=== PATIENT | female | born 1970 | race African-American/Black ===

== ENCOUNTER 2024-06-26 23:39 | Inpatient (IN) | payer MEDICAID ==
[~2024-06-26] VITALS: Ht 175.3 cm; Wt 98.4 kg
[2024-06-27 00:46] LABS: BASOPHILS % 0.3 % (0.0-2.0); EOSINOPHILS % 3.9 % (0.0-5.0); HEMOGLOBIN. 13.7 g/dL (12.0-16.0); LYMPHOCYTES % 31.7 % (20.0-50.0); MEAN CORPUSCULAR HEMOGLOBIN 30.2 pg (28.0-32.0); MEAN CORPUSCULAR HGB CONC 33.5 g/dL (31.0-37.0); MEAN CORPUSCULAR VOLUME 90.4 fL (81.0-99.0); MEAN PLATELET VOLUME 8.5 fl (7.4-10.4); MONOCYTES % 6.2 % (2.0-8.0); NEUTROPHILS % 57.9 % (40.0-76.0); PLATELET 240 x1000/uL (130-400); RED BLOOD CELL COUNT 4.53 mill/uL (4.2-5.4); RED CELL DISTRIBUTION WIDTH 14.1 % (11.6-14.6)
[2024-06-27 00:52] LABS: CARBON DIOXIDE 25 mEq/L (21-32); CHLORIDE 109 mEq/L (98-107); POTASSIUM 3.4 mEq/L (3.5-5.1); SODIUM 142 mEq/L (136-145)
[2024-06-27 00:53] LABS: CALCIUM 9.1 mg/dL (8.7-10.4)
[2024-06-27 00:57] LABS: CREATININE 1.1 mg/dL (0.6-1.0); GLUCOSE 140 mg/dL (70-105)
[2024-06-27 00:58] LABS: UREA NITROGEN BLOOD 23 mg/dL (9-23)
[2024-06-27 01:00] LABS: TROPONIN I HIGH SENSITIVITY 4 ng/L (3.0-34)
[2024-06-27 05:06] LABS: TROPONIN I HIGH SENSITIVITY 4 ng/L (3.0-34)
[2024-06-27] MEDS ORDERED: IPRATROPIUM/ALBUTEROL 0.5-3(2.5)MG/3ML NEB HHN PRN (05:30)
[2024-06-27] MEDS ORDERED: ACETAMINOPHEN 325MG TABLET PO PRN ×2 (05:30)
[2024-06-27] MEDS ORDERED: DOCUSATE SODIUM 100MG CAPSULE PO PRN (05:30)
[2024-06-27] MEDS ORDERED: CLONIDINE 0.1MG TABLET PO PRN (05:30)
[2024-06-27] MEDS ORDERED: MAGNESIUM/ALUMINUM HYDROXIDE/SIMETHICONE 30ML UDC PO PRN (05:30)
[2024-06-27] MEDS ORDERED: ONDANSETRON HCL 4MG/2ML INJ IV PRN (05:30)
[2024-06-27] MEDS: ASPIRIN 81MG EC TABLET PO NR (05:38)
[2024-06-27 05:40] LABS: BASOPHILS % 0.2 % (0.0-2.0); EOSINOPHILS % 3.7 % (0.0-5.0); HEMOGLOBIN. 13.3 g/dL (12.0-16.0); LYMPHOCYTES % 34.2 % (20.0-50.0); MEAN CORPUSCULAR HEMOGLOBIN 30.1 pg (28.0-32.0); MEAN CORPUSCULAR HGB CONC 33.4 g/dL (31.0-37.0); MEAN CORPUSCULAR VOLUME 90.1 fL (81.0-99.0); MEAN PLATELET VOLUME 9.2 fl (7.4-10.4); MONOCYTES % 5.9 % (2.0-8.0); PLATELET 219 x1000/uL (130-400); RED BLOOD CELL COUNT 4.44 mill/uL (4.2-5.4); RED CELL DISTRIBUTION WIDTH 13.8 % (11.6-14.6); WHITE BLOOD COUNT 9.9 x1000/uL (4.5-11.0)
[2024-06-27 05:57] LABS: CHLORIDE 109 mEq/L (98-107); POTASSIUM 3.8 mEq/L (3.5-5.1); SODIUM 142 mEq/L (136-145)
[2024-06-27 05:58] LABS: CARBON DIOXIDE 27 mEq/L (21-32)
[2024-06-27 06:03] LABS: GLUCOSE 130 mg/dL (70-105); TRIGLYCERIDE 291 mg/dL (0-150)
[2024-06-27 06:04] LABS: LDL CHOLESTEROL 112 mg/dL (5-100); TROPONIN I HIGH SENSITIVITY 4 ng/L (3.0-34); UREA NITROGEN BLOOD 21 mg/dL (9-23)
[2024-06-27 06:05] LABS: ALANINE AMINOTRANSFERASE 27 IU/L (10-49); ALBUMIN 4.5 g/dL (3.2-4.8); ASPARTATE AMINOTRANSFERASE 21 IU/L (<34); CHOLESTEROL 182 mg/dL (<200); HDL CHOLESTEROL 34 mg/dL (>65)
[2024-06-27 06:06] LABS: BILIRUBIN TOTAL 0.3 mg/dL (0.1-1.0); PROTEIN TOTAL 7.3 g/dL (6.0-8.3)
[2024-06-27 06:08] LABS: THYROID STIMULATING HORMONE 0.19 uIU/mL (0.55-4.78)
[2024-06-27 06:41] LABS: BILIRUBIN DIRECT < 0.1 mg/dL (<=3.0); ETHANOL BLOOD < 10 mg/dL (<10)
[2024-06-27] MEDS: IOHEXOL-350 100 ML BOTTLE ONE (07:02)
[2024-06-27] MEDS: LEVOTHYROXINE SODIUM 175MCG TABLET PO SCH (07:08)
[2024-06-27] MEDS: PANTOPRAZOLE SODIUM 40 MG/VIAL IV SCH (09:34)
[2024-06-27] MEDS ORDERED: LEVO175T7 PO (10:33)
[2024-06-27] MEDS ORDERED: ATOR20TA65 PO (10:33)
[2024-06-27] MEDS ORDERED: METF-907 PO (10:33)
[2024-06-27] MEDS ORDERED: BENA-8 PO (10:33)
[2024-06-27] MEDS ORDERED: HYDR25TA PO (10:33)
[2024-06-27] MEDS ORDERED: AMLO10TA80 PO (10:33)
[2024-06-27] MEDS: HYDROCHLOROTHIAZIDE 25MG TABLET PO SCH (11:02)
[2024-06-27] MEDS: AMLODIPINE 10MG TABLET PO SCH (11:02)
[2024-06-27 15:44] LABS: TROPONIN I HIGH SENSITIVITY 4 ng/L (3.0-34)
[2024-06-27 15:48] LABS: CREATINE KINASE 122 IU/L (34-145)
[2024-06-27] MEDS: ATORVASTATIN CALCIUM 20MG TABLET PO SCH (21:04)
[2024-06-27 23:30] VITALS: BP 132/84; PULSE 60; RESP 18; TEMP 37.0852
[2024-06-28 04:00] VITALS: BP 158/88; PULSE 51; RESP 19; TEMP 36.50292
[2024-06-28 08:00] VITALS: BP 159/89; PULSE 59; RESP 18; TEMP 36.61404; O2SAT 99
[2024-06-28] MEDS: NITROGLYCERIN SPRAY/4.9GM CAN TL ONE (09:55)
[2024-06-28] MEDS ORDERED: IOHEXOL-350 100 ML BOTTLE ONE (10:33)
[2024-06-28] MEDS: ASPIRIN 81MG EC TABLET PO SCH (10:48)
[2024-06-28 12:00] VITALS: BP 131/76; PULSE 60; RESP 18; TEMP 36.72516; O2SAT 97
[2024-06-28 14:24] VITALS: BP 131/76; PULSE 60; TEMP 98.1; O2SAT 97
== END 2024-06-28 15:45 | disposition home or self-care (01) | DRG 198 ==
LOC: ER 23:39 → 5WST 06-27 01:29 → 7EST 06-27 01:29 → UNDOADMIN 06-27 01:29 → EDBEDREQ 06-27 01:35 → 7EST 06-28 00:36 → 5WST 06-28 00:36
PROVIDERS: ADMIT Internal Medicine; ATTEND Internal Medicine
DX: I20.89 Other forms of angina pectoris (principal); E11.9 Type 2 diabetes mellitus without complications; E78.5 Hyperlipidemia, unspecified; E87.6 Hypokalemia; E89.0 Postprocedural hypothyroidism; F17.210 Nicotine dependence, cigarettes, uncomplicated; I10 Essential (primary) hypertension; K59.00 Constipation, unspecified; I25.2 Old myocardial infarction; Z79.899 Other long term (current) drug therapy; Z82.49 Family history of ischemic heart disease and other diseases of the circulatory system
CPT/HCPCS: 36415; 71045; 71275; 75571; 80048; 80061; 80076; 80320; 82550; 83036; 83880; 84439; 84443; 84484; 85025; 85379; 93005; 99285; J2470; Q9967; G0480

== ENCOUNTER 2024-12-09 09:29 | Emergency (ER) | payer MEDICAID ==
[~2024-12-09] VITALS: Ht 165.1 cm; Wt 76.0 kg
[~2024-12-09 09:29] MED LIST: AMLO10TA80 PO; ATOR20TA65 PO; BENA-8 PO; HYDR25TA PO; LEVO175T7 PO; METF-907 PO
[2024-12-09 09:30] VITALS: BP 148/89; PULSE 82; RESP 18; TEMP 36.9; O2SAT 98
[2024-12-09 10:04] LABS: BASOPHILS % 0.4 % (0.0-2.0); EOSINOPHILS % 3.3 % (0.0-5.0); HEMATOCRIT. 44.3 % (36.0-48.0); HEMOGLOBIN. 14.9 g/dL (12.0-16.0); LYMPHOCYTES % 31.8 % (20.0-50.0); MEAN CORPUSCULAR HEMOGLOBIN 30.1 pg (28.0-32.0); MEAN CORPUSCULAR HGB CONC 33.5 g/dL (31.0-37.0); MEAN CORPUSCULAR VOLUME 89.8 fL (81.0-99.0); MEAN PLATELET VOLUME 8.5 fl (7.4-10.4); MONOCYTES % 4.6 % (2.0-8.0); NEUTROPHILS % 59.9 % (40.0-76.0); PLATELET 245 x1000/uL (130-400); RED BLOOD CELL COUNT 4.93 mill/uL (4.2-5.4); RED CELL DISTRIBUTION WIDTH 13.6 % (11.6-14.6); WHITE BLOOD COUNT 11.4 x1000/uL (4.5-11.0)
[2024-12-09 10:20] LABS: CHLORIDE 101 mEq/L (98-107); POTASSIUM 3.6 mEq/L (3.5-5.1); SODIUM 139 mEq/L (136-145)
[2024-12-09 10:21] LABS: CALCIUM 9.9 mg/dL (8.7-10.4); CARBON DIOXIDE 31 mEq/L (21-32)
[2024-12-09 10:26] LABS: GLUCOSE 113 mg/dL (70-105)
[2024-12-09 10:27] LABS: TROPONIN I HIGH SENSITIVITY 5 ng/L (3.0-34); UREA NITROGEN BLOOD 18 mg/dL (9-23)
[2024-12-09 13:16] LABS: TROPONIN I HIGH SENSITIVITY < 4 ng/L (3.0-34)
== END 2024-12-09 14:54 | disposition home or self-care (01) ==
LOC: ER 09:29
DX: R07.89 Other chest pain (principal); E11.9 Type 2 diabetes mellitus without complications; I10 Essential (primary) hypertension; E78.00 Pure hypercholesterolemia, unspecified; Z79.899 Other long term (current) drug therapy
CPT/HCPCS: 36415; 71045; 80048; 83880; 84484; 85025; 93005; 99291